=== PATIENT | male | born 1965 | race Caucasian/White ===

== ENCOUNTER 2016-07-22 04:57 | Emergency (ER) | payer SELFPAY ==
[~2016-07-22] VITALS: Ht 182.9 cm; Wt 77.3 kg
[2016-07-22 05:02] VITALS: BP 121/71; PULSE 80; RESP 18; O2SAT 94
--- NOTE | 2016-07-22 05:07 | ED.REPORT ---
HPI-Dental/Mouth Prob Date of Service Jul 22, 2016 ED Provider: Dr. Dennis Post M.D. A 51 year old male presents to the ED with worsening right-sided dental pain after breaking a tooth two weeks ago. The pain has begun to prevent him from sleeping. The patient denies other complaints. He does not have a regular dentist. Nursing Notes Stated Complaint: TOOTHACHE Chief Complaint: Dental Nursing Notes Reviewed: Yes Allergies: Coded Allergies: No Known Allergies (Unverified , 07/22/16) Scheduled Amoxicillin (Amoxicillin) 500 Mg Tablet 500 MG PO TID Scheduled PRN Ibuprofen (Ibuprofen) 800 Mg Tablet 800 MG PO TID PRN PRN For Pain Tramadol (Tramadol) 50 Mg Tablet 100 MG PO Q6H PRN PRN For Pain General Time Seen by MD: 05:06 Chief Complaint Tooth pain Hx Obtained From: Patient Arrived By: Walk-in Onset Occurred: More than a week ago... (2 weeks) Symptom Duration: Since onset Location: : Tooth upper R bicuspid Quality: Painful Severity: Current: Moderate Severity: Maximum: Moderate Associated with: Denies: Fever Pertinent Negative: Relieved by nothing Recent Healthcare: No recent doctor visit Past Medical History Past Medical History None reported Past Surgical History None reported Smoking History Unknown if Ever Smoker Ambulatory Status Independent Review of Systems Review of Systems Note: + Broken tooth Constitutional: Denies: Fever Ears / Nose / Throat: Reports: Toothache (Right-sided) Respiratory: Denies: Non-productive cough, Shortness of breath GI: Denies: Diarrhea, Vomiting Complete sys rev & neg: except as marked. Psychiatric: Reports: Insomnia Physical Exam Initial Vital Signs Vital Signs (First) Date Time Temp Pulse Resp B/P Pulse Ox O2 Delivery O2 Flow Rate FiO2 07/22/16 05:02 36.1 80 18 121/71 94 Room Air Initial VS: Reviewed Head / Eyes: Atraumatic, Normocephalic Respiratory: No respiratory distress Neurologic: Alert, Oriented, Nonfocal Psychiatric: Mood/affect normal, Behavior normal, Normal thought content ENT: Airway patent, Mucous membranes moist Dental / Gums: Positive: Decay extensive, Dentition poor, Gum erosion present #4 tooth buccal and mesial cusp broken off Tooth rotted to gumline Extensive periodontal disease Neck: Supple, Full range of motion General/Constitutional: Awake, Alert Hard of hearing Re-Eval/Medical Decision Med Decision/Clinical Course Dental fracture and abscess in a 51-year-old man. Begun with amoxicillin tramadol and ibuprofen. Dental resources provided. Follow-up with dentist SUSAN. Re-Evaluation/Progress : Time of Eval: 05:25 Patient Status: Condition improved Re-Evaluation/Progress Note: Discussed with patient diagnosis and plan for discharge. Follow-up and return to the ER instructions given. Patient agrees with plan for care and all questions were addressed. Counseled Regarding: Diagnosis, Need for follow-up, When/why to return to ED Discharge & Departure Shift Change Sign-Out Response to Therapy: Improved Primary Impression: Dental abscess Additional Impressions: Gingivitis Toothache Disposition: Home Discharge Condition All VS Reviewed: Yes Condition: Improved Patient Instructions: Dental Abscess (ED), Dental Caries (ED) Additional Instructions: Amoxicillin three times daily. Ibuprofen three times daily. Tramadol two tablets up to four times daily. Never exceeding a tramadol tablets in a day. Call a dentist for an appointment as soon as possible. Pills will only relieve this temporarily, and it will flare back as soon as they stop. Follow-up also with your doctor in the office. We cannot renew prescriptions from the emergency department. Referrals: [facility] Scribe Attestation Portions of this note were transcribed by Ellen Altamirano. I, Dr. Post, personally performed the history, physical exam, and medical decision-making; I reviewed and confirmed the accuracy of the information in the transcribed note. Signed by: Clovis Romo, 07/22/2016, 05:50 copies to: [facility] Dennis Post MD Jul 22, 2016 05:07 ELLEN ALTAMIRANO Jul 22, 2016 05:20
[2016-07-22] MEDS ORDERED: Ketorolac 30 mg/mL 2 mL Inj IM ONE (05:10)
[2016-07-22] MEDS ORDERED: TRAM50TA2 PO (05:14)
[2016-07-22] MEDS ORDERED: AMOX500T2 PO (05:14)
[2016-07-22] MEDS ORDERED: IBUP800T28 PO (05:14)
[2016-07-22 05:35] VITALS: BP 136/82; PULSE 72; RESP 14; O2SAT 99
== END 2016-07-22 05:38 | disposition home or self-care (01) ==
LOC: SED 04:57
DX: K04.7 Periapical abscess without sinus (principal); K05.10 Chronic gingivitis, plaque induced
CPT/HCPCS: 96372; 99283; J1885